=== PATIENT | female | born 1990 | race African-American/Black ===

== ENCOUNTER → 2016-07-01 | Outpatient (CLI) | payer OTHER ==
[2014-08-28 00:34] VITALS: BP 167/78
[~2016-07-01] MED LIST: AMLO10TA2 PO; CICL6.1H IH; ESOM40CA PO; ESOM40CA25 PO; IPRA3AMP23 IH; IPRA4AER IH; LOSA50TA6 PO; METH8TAB PO; MOME13HF IH; MOME13HF2 IH; MONT10TA6 PO; PRED-220 PO; PRED5TAB19 PO; SERT50TA PO; SUCR1ORA PO; TIOT18CA IH; TRIA10.8 NS
--- NOTE | 2016-07-01 13:55 | RAD ---
Indication asthma cough possible tuberculosis. PA and lateral views of the chest were obtained. Comparison is made to an examination 04/21/2014. The heart and pulmonary vessels are normal. The lungs are clear. There is no evidence of active infection. Evidence for significant old granulomatous disease is not seen. Visualized bony structures appear unremarkable. IMPRESSION: Normal study
== END | disposition home or self-care (01) ==
LOC: RAD 12:46
PROVIDERS: ATTEND Allergy & Immunology
DX: J45.998 Other asthma (principal)
CPT/HCPCS: 71020

== ENCOUNTER → 2017-03-20 | Outpatient (CLI) | payer OTHER ==
[2014-08-28 00:34] VITALS: BP 167/78
[~2017-03-20] MED LIST changes: -CICL6.1H IH; +CICL6.1H3 IH; -SUCR1ORA PO; +SUCR1ORA11 PO
--- NOTE | 2017-03-20 16:20 | RAD ---
Left shoulder, 3 views, 03/20/2017: History: Hyperextension injury No fracture or dislocation is identified. No significant arthritic change is seen. IMPRESSION: No acute left shoulder abnormality is detected.
== END ==
LOC: RAD 15:43
PROVIDERS: ATTEND Physician Assistant Medical
DX: M19.019 Primary osteoarthritis, unspecified shoulder (principal)
CPT/HCPCS: 73030

== ENCOUNTER 2017-08-25 09:51 | Emergency (ER) | payer OTHER ==
[2017-08-25 10:17] LABS: URINE HCG POC HCG NEGATIVE (Negative)
[2017-08-25] MEDS: IV NORMAL SALINE 1000ML BAG 1,000 ML IV (10:31)
[2017-08-25] MEDS: ONDANSETRON PF 4 MG/2 ML VIAL. IV ×2 (10:31→10:32)
[2017-08-25] MEDS: APIXABAN 5 MG TABLET. PO (10:32)
[2017-08-25 10:38] LABS: ADD MAN DIFF? NO; BASO % 1 % (0-3); EOS # 0.3 x10^3/uL (0.0-0.7); EOS % 5 % (0-3); HEMATOCRIT 35.9 % (36.0-47.0); HEMOGLOBIN 11.3 g/dL (12.0-15.5); LYMPH # 1.4 x10^3/uL (1.0-4.8); LYMPH % 21 % (24-48); MEAN CORPUSCULAR HEMOGLOBIN 25 pg (25-35); MEAN CORPUSCULAR HGB CONC 32 g/dL (31-37); MEAN CORPUSCULAR VOLUME 78 fL (79-100); MONO # 0.4 x10^3/uL (0.0-1.1); MONO % 6 % (0-9); NEUT # 4.5 x10^3uL (1.8-7.7); NEUT % 67 % (31-73); PLATELET COUNT 388 x10^3/uL (140-400); RED BLOOD COUNT 4.59 x10^6/uL (3.50-5.40); RED CELL DISTRIBUTION WIDTH 17.6 % (11.5-14.5); WHITE BLOOD COUNT 6.7 x10^3/uL (4.0-11.0)
[2017-08-25 11:05] LABS: ANION GAP 18 (6-14); BLOOD UREA NITROGEN 2 mg/dL (7-20); CALCIUM 8.9 mg/dL (8.5-10.1); CARBON DIOXIDE 20 mmol/L (21-32); CHLORIDE 105 mmol/L (98-107); CREATININE 0.7 mg/dL (0.6-1.0); GFR 120.6; GLUCOSE 80 mg/dL (70-99); POTASSIUM 3.1 mmol/L (3.5-5.1); SODIUM 143 mmol/L (136-145)
[2017-08-25 11:17] LABS: BILIRUBIN,URINE SMALL (NEG); CLARITY,URINE CLEAR; COLOR,URINE YELLOW; GLUCOSE,URINE NEGATIVE (NEG); NITRITE,URINE NEGATIVE (NEG); PROTEIN,URINE 100 mg/dL (NEG-TRACE); UROBILINOGEN,URINE 0.2 mg/dL (0.2 mg/dL)
[2017-08-25 11:34] LABS: BACTERIA,URINE FEW /HPF (0-FEW); RBC,URINE 0 /HPF (0-2); SQUAMOUS EPITHELIAL CELL,UR FEW /LPF; YEAST,URINE PRESENT /HPF
[2017-08-25] MEDS: KETOROLAC 30 MG/ML INJ. IV (11:42)
[2017-08-25] MEDS: POTASSIUM CHLORIDE 20 MEQ TABLET.ER. PO (11:43)
[2017-08-25] MEDS ORDERED: FLUCONAZOLE 100 MG TABLET. PO (12:00)
== END 2017-08-25 12:30 | disposition home or self-care (01) ==
LOC: ER 09:51
DX: R11.2 Nausea with vomiting, unspecified (principal); I10 Essential (primary) hypertension; K21.9 Gastro-esophageal reflux disease without esophagitis; J45.909 Unspecified asthma, uncomplicated; Z98.84 Bariatric surgery status; Z79.01 Long term (current) use of anticoagulants; Z88.8 Allergy status to other drugs, medicaments and biological substances
CPT/HCPCS: 36415; 80048; 81001; 81025; 85025; 93005; 96361; 96374; 96375; 96376; 99285-25; J1885; J2405; J7030

== ENCOUNTER → 2018-01-19 | Outpatient (CLI) | payer OTHER ==
[~2018-01-19] VITALS: Ht 165.1 cm; Wt 109.8 kg
[~2018-01-19] MED LIST changes: +APIX5TAB PO; +HYDR-971 PO; +LIDOCAINE 1%/EPI 1:100,000 20 ML VIAL. IJ ONE; +LIDOCAINE 1%/EPI 1:100,000 20 ML VIAL. ONE; +PANT20TA2 PO; +PROPOFOL 100 ML IV ONE
[2018-01-19 11:22] VITALS: BP 128/58
[2018-01-19 13:22] VITALS: BP 137/76
--- NOTE | 2018-01-19 16:43 | RAD ---
Procedure: Ultrasound and fluoroscopically guided placement of right internal jugular power port.. 01/19/2018 4:39 PM Clinical Indication: HUNG CATH PLACEMENT ELECTROLYTE IMBALANCE Sedation: Provided by the anesthesia department. Fluoroscopy time: 2 minutes Dose area product: 5 Gycm2 Consent: The procedure was explained in its entirety to the patient or the patients designated b2b outside sales representative by a member of the treatment team, including a discussion of the risks, benefits and commonly accepted alternatives to the procedure, as well as the expected consequences of no therapy whatsoever. Discussion of the risks included, but was not limited to, those that are most frequent and those that are rare but possibly severe or life-threatening, as well as the possibility of unforeseen complications. Technique and Findings: All elements of maximal sterile barrier technique including the use of a cap, mask, sterile gown, sterile gloves, large sterile sheet, appropriate hand hygiene, and 2% chlorhexidine for cutaneous antisepsis (or acceptable alternative antiseptic per current guidelines) were followed for this procedure.Following informed consent, and a timeout procedure, the patient was prepped and draped in the usual sterile fashion. Ultrasound interrogation of the right neck revealed patency and compressibility of the right internal jugular vein. A 21-gauge micropuncture was then used to gain access to this vein under ultrasound guidance. A hard copy ultrasound image was recorded. The needle was exchanged over a wire for a sheath. A 1 inch incision was made several centimeters inferior to the venotomy site. A catheter was tunneled from this site dermatotomy site in the neck. Catheter was advanced through peel-away sheath such that its tip was in the proximal right atrium with the patient supine. The catheter was trimmed to length and connected to the port reservoir. The port was found to flush and aspirate normally. The wound was closed in layers using 4-0 Vicryl suture. Sterile dressings were applied. Impression: Successful ultrasound and fluoroscopically guided placement of a right internal jugular PowerPort
== END | disposition home or self-care (01) ==
LOC: INTRAD 09:58
PROVIDERS: ATTEND Surgery
DX: Z45.2 Encounter for adjustment and management of vascular access device (principal); E87.8 Other disorders of electrolyte and fluid balance, not elsewhere classified; Z88.5 Allergy status to narcotic agent; Z88.8 Allergy status to other drugs, medicaments and biological substances
CPT/HCPCS: 36561; 76937; 77001; A4215; C1788; C1892; J0690; J2704; J3490; C1751

== ENCOUNTER → 2018-02-02 | Day surgery (SDC) | payer OTHER ==
[~2018-02-02] VITALS: Ht 165.1 cm; Wt 104.3 kg
[~2018-02-02] MED LIST changes: -AMLO10TA2 PO; +AMLO10TA6 PO; +HEPARIN PF 500 UNIT/5 ML DISP.SYRIN. IV ONE; +HYDROcodone/APAP 5/325MG 1 TAB TABLET PO ONE; +IV RINGERS,LACTATED 1000ML 1,000 ML IV SCH; +LIDOCAINE 1% PF 2 ML VIAL. ID PRN; -LIDOCAINE 1%/EPI 1:100,000 20 ML VIAL. ONE; +LIDOCAINE 2% 100 MG/5 ML SYRINGE. ONE; -LOSA50TA6 PO; +LOSA50TA7 PO; +ONDANSETRON PF 4 MG/2 ML VIAL. IV PRN; +PROCHLORPERAZINE 10 MG/2 ML VIAL. IV PRN; +PROPOFOL 10 MG/ML (20ML) VIAL. IV ONE; -PROPOFOL 100 ML IV ONE; +SUCCINYLCHOLINE 200 MG/10 ML VIAL. ONE; +ceFAZolin 2GM PREMIX 2 GM/50 ML BAG IV ONE; +diphenhydrAMINE 50 MG/ML VIAL IVP ONE; +diphenhydrAMINE 50 MG/ML VIAL ONE; +fentaNYL PF VIAL 100 MCG/2 ML VIAL IV PRN
[2018-02-02 10:46] VITALS: BP 144/92
[2018-02-02] MEDS: fentaNYL PF VIAL 100 MCG/2 ML VIAL IV PRN ×2 (14:02→14:30)
[2018-02-02 15:10] VITALS: BP 120/71
== END | disposition home or self-care (01) ==
LOC: SURG 10:14
PROVIDERS: ATTEND Anesthesiology
DX: Z45.2 Encounter for adjustment and management of vascular access device (principal); Z88.5 Allergy status to narcotic agent; Z88.8 Allergy status to other drugs, medicaments and biological substances
CPT/HCPCS: 36558; 36590; 76937; 77001; A7015; C1751; J0330; J0690; J1200; J2704; J3010; J7120

== ENCOUNTER → 2018-02-07 | Outpatient (CLI) | payer OTHER ==
[2018-02-05 10:30] VITALS: BP 133/80
[~2018-02-07] MED LIST changes: -HEPARIN PF 500 UNIT/5 ML DISP.SYRIN. IV ONE; -HYDROcodone/APAP 5/325MG 1 TAB TABLET PO ONE; -IV RINGERS,LACTATED 1000ML 1,000 ML IV SCH; -LIDOCAINE 1% PF 2 ML VIAL. ID PRN; -LIDOCAINE 1%/EPI 1:100,000 20 ML VIAL. IJ ONE; -LIDOCAINE 2% 100 MG/5 ML SYRINGE. ONE; -ONDANSETRON PF 4 MG/2 ML VIAL. IV PRN; -PROCHLORPERAZINE 10 MG/2 ML VIAL. IV PRN; -PROPOFOL 10 MG/ML (20ML) VIAL. IV ONE; -SUCCINYLCHOLINE 200 MG/10 ML VIAL. ONE; -ceFAZolin 2GM PREMIX 2 GM/50 ML BAG IV ONE; -diphenhydrAMINE 50 MG/ML VIAL IVP ONE; -diphenhydrAMINE 50 MG/ML VIAL ONE; -fentaNYL PF VIAL 100 MCG/2 ML VIAL IV PRN
[2018-02-09 13:39] LABS: ANTITHROMBIN III SEE SEPARATE REPORT; CARDIOLIPIN ANTIBODIES SEE SEPARATE REPORT; LUPUS ANTICOAGULANT SEE SEPARATE REPORT
[2018-02-09 13:40] LABS: PROTEIN C ACTIVITY SEE SEPARATE REPORT; PROTEIN S ACTIVITY SEE SEPARATE REPORT
[2018-02-09 13:43] LABS: PROTEIN S FREE SEE SEPARATE REPORT; PROTEIN S TOTAL SEE SEPARATE REPORT
== END | disposition home or self-care (01) ==
LOC: LAB 10:48
PROVIDERS: ATTEND Hospitalist
DX: D68.59 Other primary thrombophilia (principal); I10 Essential (primary) hypertension; K21.9 Gastro-esophageal reflux disease without esophagitis; Z86.711 Personal history of pulmonary embolism; Z82.49 Family history of ischemic heart disease and other diseases of the circulatory system; Z88.8 Allergy status to other drugs, medicaments and biological substances; Z88.5 Allergy status to narcotic agent
CPT/HCPCS: 83090; 85300; 85302; 85305; 85306; 85610; 86147

== ENCOUNTER → 2018-02-14 | Outpatient (CLI) | payer OTHER ==
[2018-02-12 09:05] VITALS: BP 129/75
[~2018-02-14] MED LIST changes: +HEPARIN PF 500 UNIT/5 ML DISP.SYRIN. IV ONE; +HYDR-2867 PO; +OXYC15TA PO
[2018-02-14 10:20] LABS: CREATININE 0.5 mg/dL (0.6-1.0); GFR 177.8; POTASSIUM 3.5 mmol/L (3.5-5.1)
[2018-02-14 10:24] LABS: ALBUMIN 2.7 g/dL (3.4-5.0); ALBUMIN/GLOBULIN RATIO 0.7 (1.0-1.7); TOTAL BILIRUBIN 0.4 mg/dL (0.2-1.0); TOTAL PROTEIN 6.4 g/dL (6.4-8.2)
[2018-02-14 10:26] LABS: PHOSPHORUS 3.8 mg/dL (2.6-4.7); URIC ACID 3.6 mg/dL (2.6-6.0)
[2018-02-14 10:27] LABS: CHOLESTEROL/HDL RATIO 2.3
[2018-02-14 10:31] LABS: BASO % 1 % (0-3); EOS # 0.1 x10^3/uL (0.0-0.7); EOS % 2 % (0-3); HEMATOCRIT 32.4 % (36.0-47.0); HEMOGLOBIN 10.8 g/dL (12.0-15.5); LYMPH # 2.4 x10^3/uL (1.0-4.8); LYMPH % 53 % (24-48); MEAN CORPUSCULAR HEMOGLOBIN 26 pg (25-35); MEAN CORPUSCULAR HGB CONC 33 g/dL (31-37); MEAN CORPUSCULAR VOLUME 77 fL (79-100); MONO # 0.2 x10^3/uL (0.0-1.1); MONO % 5 % (0-9); NEUT # 1.8 x10^3uL (1.8-7.7); NEUT % 39 % (31-73); PLATELET COUNT 242 x10^3/uL (140-400); RED BLOOD COUNT 4.19 x10^6/uL (3.50-5.40); RED CELL DISTRIBUTION WIDTH 21.1 % (11.5-14.5); WHITE BLOOD COUNT 4.5 x10^3/uL (4.0-11.0)
[2018-02-14 12:38] LABS: % BASOS 5 % (0-3); % EOS 4 % (0-5); % LYMPHS 26 % (24-48); % MONOS 9 % (0-10); % SEGS 56 % (35-66)
[2018-02-14 12:39] LABS: ANISOCYTOSIS MOD; HYPOCHROMIA SLIGHT; PLT ESTIMATE ADEQUATE (ADEQUATE); TARGET CELLS FEW
[2018-02-15 04:20] LABS: HEMOGLOBIN A1C 4.5 % (4.8-5.6)
== END | disposition home or self-care (01) ==
LOC: OPS 09:16
PROVIDERS: ATTEND Surgery
DX: E55.9 Vitamin D deficiency, unspecified (principal); R11.2 Nausea with vomiting, unspecified; F50.9 Eating disorder, unspecified; I10 Essential (primary) hypertension; K21.9 Gastro-esophageal reflux disease without esophagitis; J45.909 Unspecified asthma, uncomplicated; Z86.711 Personal history of pulmonary embolism; Z79.01 Long term (current) use of anticoagulants
CPT/HCPCS: 36415; 80053; 80061; 82306; 82607; 82746; 83036; 83540; 83550; 83735; 84100; 84134; 84550; 85007; 85025

== ENCOUNTER → 2018-03-28 | Day surgery (SDC) | payer OTHER ==
[~2018-03-28] VITALS: Ht 165.1 cm; Wt 95.3 kg
[~2018-03-28] MED LIST changes: +BUPIVAC MPF-EPI 0.5%-1:200000 30 ML VIAL. ONE; +IV RINGERS,LACTATED 1000ML 1,000 ML IV SCH; +LIDOCAINE 1% PF 2 ML VIAL. ID PRN; +MIDAZOLAM HCL/PF 2 MG/2 ML VIAL. IV PRN; +PROPOFOL 20 ML IV ONE; +SCOPOLAMINE 1.5MG PATCH. TD ONE; +fentaNYL PF VIAL 100 MCG/2 ML VIAL IV PRN; +fentaNYL PF VIAL 100 MCG/2 ML VIAL ONE; +oxyCODONE IR 5 MG TABLET PO ONE
[2018-03-28 11:38] LABS: U PREG PATIENT NEGATIVE (NEG)
--- NOTE | 2018-03-28 12:56 | PDOC ---
BRIEF OPERATIVE NOTE Date: Mar 28, 2018 Pre-Op Diagnosis right upper chest fluid collection at old port site Post-Op Diagnosis same Procedure Performed excision skin and subcutaneous tissue Surgeon J Carlos Anesthesia Type: MAC Blood Loss 2cc IV Fluid 500cc Specimens Obtained subcutaneous tissue Findings fibrotic tissue, no purulence Complications none Operative Note WK # [id number] SIERRA MEIER MD Mar 28, 2018 12:56
--- NOTE | 2018-03-28 12:59 | DISCH ---
DISCHARGE INSTRUCTIONS Condition on Discharge Condition on Discharge: Stable Activity After Discharge Activity Instructions for Disc: Resume previous activity Driving Instructions after Dis: Do not drive today Diet after Discharge Diet after Discharge: Regular Wound Incision Care Wound/Incision Care: Ice to area for comfort Other wound/incision instructi: office Monday for dressing change Contacting the [facility] after DC Call your doctor for: If your condition worsens Follow-Up Follow up with: J Carlos Monday SIERRA MEIER MD Mar 28, 2018 12:59
[2018-03-28] MEDS: fentaNYL PF VIAL 100 MCG/2 ML VIAL IV PRN ×2 (13:22→13:31)
[2018-03-28 13:31] VITALS: BP 117/64
--- NOTE | 2018-03-28 13:47 | OP ---
DATE OF SURGERY: 03/28/2018 PREOPERATIVE DIAGNOSIS: Right upper chest fluid collection at old port site by ultrasound. POSTOPERATIVE DIAGNOSIS: Right upper chest fluid collection at old port site by ultrasound. PROCEDURE: Excision of skin and subcutaneous tissue. SURGEON: Sierra Meier MD ANESTHESIA: Local with sedation. ESTIMATED BLOOD LOSS: 2 mL. IV FLUIDS: 500 mL. INDICATIONS: The patient is a 27-year-old with a previous port site in the right upper chest that has been a source of pain. Ultrasound suggests possible fluid collection or foreign body. She is brought for excision. DESCRIPTION OF PROCEDURE: The patient brought to the operating suite and with IV sedation on board, the right upper chest was prepped and draped in usual sterile fashion. The area of concern, which had been identified preoperatively with the patient's assistance was infiltrated with local anesthetic and the old scar excised. The underlying tissue was removed en bloc with cautery dissection. The cavity was cultured. When hemostasis was present, the wound was closed loosely with simple stitches of 4-0 nylon. Quarter inch plain Nu Gauze was used to pack the wound. Sterile dressing applied. The patient was taken to the postoperative area in stable condition having tolerated the procedure well. SIERRA MEIER MD DR: ROMERO/holly JOB#: [id number] / [id number]
--- NOTE | 2018-03-30 13:19 | PATHOLOGY ---
[facility] Accession Number: [id number] . 01 Material submitted: . SUBCUTANEOUS TISSUE,RIGHT UPPER CHEST . 01 Clinical history: . Subcutaneous mass right upper chest . 02 Diagnosis: "Subcutaneous tissue, right upper chest", excisional biopsy: - Mature adipose tissue with fat necrosis. (See comment). 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 02 Comment: The findings may represent a lipoma with focal fat necrosis. Clinical correlation is recommended. 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 02 Electronically signed: . Mariann Pan MD, Pathologist NPI- [id number] . 01 Gross description: . The specimen is received in formalin, labeled "Nadolena Obregon, subcutaneous tissue right upper chest". Received are two segments of bright yellow lobulated tissue measuring 3.7 x 2.2 x 1.3 cm in greatest dimensions. Sectioning reveals bright yellow, lobulated cut surfaces throughout with no grossly distinct nodules or lesions. The specimen is submitted representatively in cassette A1. (CAA; 03/29/2018) QAC/QAC . 02 Pathologist provided ICD-10: I96 . 02 CPT . 711374 Specimen Comment: A courtesy copy of this report has been sent to Specimen Comment: [phone], . Specimen Comment: Report sent to / DR SCHREIBER Specimen Comment: A duplicate report has been generated due to demographic updates. Performed at: 01 [facility] [address], [place], [place] [id number] MD Nate Luo MD Phone: [phone] Performed at: 02 [facility] [address] [place], [place] [id number] MD Syed Garrison MD Phone: [phone]
== END | disposition home or self-care (01) ==
LOC: SURG 10:50
PROVIDERS: ATTEND Surgery
DX: L90.5 Scar conditions and fibrosis of skin (principal); I10 Essential (primary) hypertension; K21.9 Gastro-esophageal reflux disease without esophagitis; Z79.01 Long term (current) use of anticoagulants; J45.909 Unspecified asthma, uncomplicated; Z88.5 Allergy status to narcotic agent; Z79.899 Other long term (current) drug therapy; Z98.890 Other specified postprocedural states; Z88.8 Allergy status to other drugs, medicaments and biological substances
CPT/HCPCS: 11400; 81025; 87071; 87075; J0690; J2704; J3010; J3490; 88304

== ENCOUNTER 2018-04-30 12:43 | Emergency (ER) | payer OTHER ==
[~2018-04-30] VITALS: Ht 165.1 cm; Wt 98.9 kg
[~2018-04-30 12:43] MED LIST changes: -BUPIVAC MPF-EPI 0.5%-1:200000 30 ML VIAL. ONE; -HEPARIN PF 500 UNIT/5 ML DISP.SYRIN. IV ONE; +HYDR-3164 PO; -HYDR-971 PO; -IV RINGERS,LACTATED 1000ML 1,000 ML IV SCH; -LIDOCAINE 1% PF 2 ML VIAL. ID PRN; +LOSA-73 PO; -LOSA50TA7 PO; -MIDAZOLAM HCL/PF 2 MG/2 ML VIAL. IV PRN; -PROPOFOL 20 ML IV ONE; -SCOPOLAMINE 1.5MG PATCH. TD ONE; -fentaNYL PF VIAL 100 MCG/2 ML VIAL IV PRN; -fentaNYL PF VIAL 100 MCG/2 ML VIAL ONE; -oxyCODONE IR 5 MG TABLET PO ONE
--- NOTE | 2018-04-30 13:10 | PHYS DOC ---
Past Medical History Past Medical History: Asthma, GERD, Hypertension, Pneumonia Additional Past Medical Histor: seasonal allergies, palpitations, pulmonary embolism Past Surgical History: Other Additional Past Surgical Histo: RT hip, RT knee, gastric bypass Additional Information: Uses vape Alcohol Use: Occasionally Drug Use: None Social History Narrative: prior history of THC through the vape Adult General Chief Complaint Chief Complaint: CHEST PAIN HPI HPI Patient is a 27 year old female who presents with chest and back pain. 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 Patient is currently on Eliquis. Patient is also had pneumonia this likely due to aspiration since that time. 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 Patient additionally receives IV infusion therapy 3 times a week with fluids, and a multivitamin preparation, as a complication from her gastric bypass surgery. Patient reports being lightheaded but this is normal for her since the gastric bypass. Denies any syncopal episode. Patient denies any fever. Nothing seems to make the discomfort better or worse. It has been waxing and waning over the past month. Currently reported as moderate and achy in nature.[] Review of Systems Review of Systems Constitutional: Denies fever or chills [] Eyes: Denies change in visual acuity, redness, or eye pain [] HENT: Denies nasal congestion or sore throat [] Respiratory: Denies cough or shortness of breath [] Cardiovascular: No additional information not addressed in HPI [] GI: Denies abdominal pain, nausea, vomiting, bloody stools or diarrhea [] : Denies dysuria or hematuria [] Musculoskeletal: Denies back pain or joint pain [] Integument: Denies rash or skin lesions [] Neurologic: Denies headache, focal weakness or sensory changes [] Endocrine: Denies polyuria or polydipsia [] All other systems were reviewed and found to be within normal limits, except as documented in this note. Current Medications Current Medications Current Medications Medications (Trade) Dose Ordered Sig/Serjio Start Time Stop Time Status Last Admin Dose Admin Hydromorphone HCl (Dilaudid) 0.5 mg 1X ONCE 04/30/18 13:15 04/30/18 13:16 DC 04/30/18 14:10 0.5 MG Info (CONTRAST GIVEN -- Rx MONITORING) 1 each PRN DAILY PRN 04/30/18 13:45 05/02/18 13:44 Iohexol (Omnipaque 300 Mg/ml) 100 ml 1X ONCE 04/30/18 13:30 04/30/18 13:31 DC 04/30/18 13:52 100 ML Prochlorperazine Edisylate (Compazine) 10 mg 1X ONCE 04/30/18 13:30 04/30/18 13:31 DC 04/30/18 14:10 10 MG Allergies Allergies Allergies Coded Allergies Type Severity Reaction Last Updated Verified omalizumab Allergy Severe ANAPHYLAXIS 04/30/18 Yes codeine Allergy Intermediate Itching 04/30/18 Yes Physical Exam Physical Exam Constitutional: Well developed, well nourished, no acute distress, non-toxic appearance. [] HENT: Normocephalic, atraumatic, bilateral external ears normal, oropharynx moist, no oral exudates, nose normal. [] Eyes: PERRLA, EOMI, conjunctiva normal, no discharge. [] Neck: Normal range of motion, no tenderness, supple, no stridor. [] Cardiovascular:Heart rate regular rhythm, no murmur [] Lungs & Thorax: Bilateral breath sounds clear to auscultation [] Abdomen: Bowel sounds normal, soft, no tenderness, no masses, no pulsatile masses. [] Skin: Warm, dry, no erythema, no rash. [] Back: No tenderness, no CVA tenderness. [] Extremities: No tenderness, no cyanosis, no clubbing, ROM intact, no edema. [] Neurologic: Alert and oriented X 3, normal motor function, normal sensory function, no focal deficits noted. [] Psychologic: Affect normal, judgement normal, mood normal. [] Current Patient Data Vital Signs Vital Signs Date Time Temp Pulse Resp B/P (MAP) Pulse Ox O2 Delivery O2 Flow Rate FiO2 04/30/18 14:10 17 100 04/30/18 13:01 82 118/88 (98) Room Air Lab Values Laboratory Tests Test 04/30/18 13:25 04/30/18 13:28 04/30/18 14:02 Urine Collection Type Unknown Urine Color Yellow Urine Clarity Clear Urine pH 6.0 Urine Specific [place] 1.020 Urine Protein Negative mg/dL (NEG-TRACE) Urine Glucose (UA) Negative mg/dL (NEG) Urine Ketones (Stick) 40 mg/dL (NEG) Urine Blood Negative (NEG) Urine Nitrite Negative (NEG) Urine Bilirubin Moderate (NEG) Urine Urobilinogen Dipstick 1.0 mg/dL (0.2 mg/dL) Urine Leukocyte Esterase Small (NEG) Urine RBC 0 /HPF (0-2) Urine WBC 1-4 /HPF (0-4) Urine Squamous Epithelial Cells Mod /LPF Urine Bacteria Moderate /HPF (0-FEW) Urine Mucus Marked /LPF Urine Yeast Present /HPF Urine Opiates Screen Pos (NEG) Urine Methadone Screen Neg (NEG) Urine Barbiturates Neg (NEG) Urine Phencyclidine Screen Neg (NEG) Urine Amphetamine/Methamphetamine Neg (NEG) Urine Benzodiazepines Screen Neg (NEG) Urine Cocaine Screen Neg (NEG) Urine Cannabinoids Screen Pos (NEG) Urine Ethyl Alcohol Neg (NEG) POC Urine HCG, Qualitative Hcg negative (Negative) White Blood Count 4.0 x10^3/uL (4.0-11.0) Red Blood Count 3.27 x10^6/uL (3.50-5.40) L Hemoglobin 9.1 g/dL (12.0-15.5) L Hematocrit 27.0 % (36.0-47.0) L Mean Corpuscular Volume 83 fL (79-100) Mean Corpuscular Hemoglobin 28 pg (25-35) Mean Corpuscular Hemoglobin Concent 34 g/dL (31-37) Red Cell Distribution Width 16.9 % (11.5-14.5) H Platelet Count 159 x10^3/uL (140-400) Neutrophils (%) (Auto) 40 % (31-73) Lymphocytes (%) (Auto) 50 % (24-48) H Monocytes (%) (Auto) 7 % (0-9) Eosinophils (%) (Auto) 1 % (0-3) Basophils (%) (Auto) 1 % (0-3) Neutrophils # (Auto) 1.6 x10^3uL (1.8-7.7) L Lymphocytes # (Auto) 2.0 x10^3/uL (1.0-4.8) Monocytes # (Auto) 0.3 x10^3/uL (0.0-1.1) Eosinophils # (Auto) 0.1 x10^3/uL (0.0-0.7) Basophils # (Auto) 0.0 x10^3/uL (0.0-0.2) Prothrombin Time 27.8 SEC (11.7-14.0) H Prothrombin Time INR 2.6 (0.8-1.1) H Sodium Level 142 mmol/L (136-145) Potassium Level 3.2 mmol/L (3.5-5.1) L Chloride Level 111 mmol/L (98-107) H Carbon Dioxide Level 20 mmol/L (21-32) L Anion Gap 11 (6-14) Blood Urea Nitrogen 6 mg/dL (7-20) L Creatinine 0.5 mg/dL (0.6-1.0) L Estimated GFR (Cockcroft-Gault) 177.8 BUN/Creatinine Ratio 12 (6-20) Glucose Level 69 mg/dL (70-99) L Calcium Level 7.2 mg/dL (8.5-10.1) L Magnesium Level 2.0 mg/dL (1.8-2.4) Total Bilirubin 0.3 mg/dL (0.2-1.0) Aspartate Amino Transferase (AST) 15 U/L (15-37) Alanine Aminotransferase (ALT) 15 U/L (14-59) Alkaline Phosphatase 75 U/L (46-116) Troponin I Quantitative < 0.017 ng/mL (0.000-0.055) SU-Khy-Y-Type Natriuretic Peptide 112 pg/mL (0-124) Total Protein 4.7 g/dL (6.4-8.2) L Albumin 1.9 g/dL (3.4-5.0) L Albumin/Globulin Ratio 0.7 (1.0-1.7) L Lipase 32 U/L (73-393) L Laboratory Tests 04/30/18 14:02 Laboratory Tests 04/30/18 14:02 EKG EKG EKG shows a sinus rhythm, no ST elevations, T-wave inversions in the 3,4,5, and 6. Normal axis, QTc is normal at 448 ms.[] Radiology/Procedures Radiology/Procedures CT angiogram of the chest: FINDINGS: The visualized thyroid gland grossly appears unremarkable. . The heart size grossly appears unremarkable. The caliber of the aorta grossly appears unremarkable. There is no evidence of filling defect identified in the main pulmonary arterial trunk and right and left main pulmonary arteries and the visualized lobar, segmental branches of the pulmonary arteries. Minimal atelectasis left lung base There is diffuse decreased attenuation noted in the liver likely hepatic steatosis There is 2.4 cm hypodensity identified in the left lobe of the liver probably focal fat. The visualized spleen, adrenals grossly appears unremarkable. No evidence of lytic bony destructive lesion. Left-sided catheter tip identified in the SVC. IMPRESSION: 1. No evidence of pulmonary embolism. 2. Minimal atelectasis left lung base. 3. Hepatic steatosis with focal fat in the left lobe of the liver. [] Course & Med Decision Making Course & Med Decision Making Pertinent Labs and Imaging studies reviewed. (See chart for details) ED course: Patient arrived, is placed in bed, in tolerate exam well. She was transferred to and from [place] without complications. After the return of the lab and imaging findings, these were discussed with the patient, and all questions were answered. Patient was discharged in improved condition. Medical decision making: There is no evidence of acute coronary syndrome, pulmonary embolism, pneumonia, pneumothorax, hemothorax, nor significant intrathoracic pathology.[] Dragon Disclaimer Dragon Disclaimer This electronic medical record was generated, in whole or in part, using a voice recognition dictation system. Departure Departure Impression: Primary Impression: Chest pain Disposition: 01 HOME, SELF-CARE Condition: GOOD Referrals: MYRA SCHREIBER MD (PCP) Follow-up with your regular doctor in 2 days. Patient Instructions: Chest Pain (Nonspecific) Additional Instructions: Follow-up with your regular doctor in 2 days. Return to the ER if worsening pain , difficulty breathing, fever, or any other concerns. Problem Qualifiers Primary Impression: Chest pain Chest pain type: unspecified Qualified Codes: R07.9 - Chest pain, unspecified BENITO URIAS DO Apr 30, 2018 13:10
[2018-04-30] MEDS ORDERED: CONTRAST GIVEN. MC PRN (13:45)
--- NOTE | 2018-04-30 13:49 | EKG ---
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
[2018-04-30 13:50] LABS: BILIRUBIN,URINE MODERATE (NEG); CLARITY,URINE CLEAR; COLOR,URINE YELLOW; NITRITE,URINE NEGATIVE (NEG); PROTEIN,URINE NEGATIVE (NEG-TRACE)
[2018-04-30 13:52] LABS: BACTERIA,URINE MODERATE /HPF (0-FEW); RBC,URINE 0 /HPF (0-2); SQUAMOUS EPITHELIAL CELL,UR MOD /LPF; YEAST,URINE PRESENT /HPF
[2018-04-30] MEDS: IOHEXOL 300 MG/ML 100ML VIAL. IV ONE (13:52)
[2018-04-30 13:56] LABS: BARBITURATES NEG (NEG); BENZODIAZEPINES NEG (NEG); CANNABINOIDS POS (NEG); COCAINE NEG (NEG); METHADONE NEG (NEG); OPIATES POS (NEG); PHENCYCLIDINE NEG (NEG)
[2018-04-30 13:58] LABS: AMPHETAMINE/METHAMPHETAMINE NEG (NEG)
[2018-04-30] MEDS: PROCHLORPERAZINE 10 MG/2 ML VIAL. IV ONE (14:10)
[2018-04-30] MEDS: HYDROmorphone 2 MG/ML VIAL IV ONE (14:10)
--- NOTE | 2018-04-30 14:17 | RAD ---
Examination: CT angiography chest HISTORY: History of chest pain COMPARISON: None available Technique: Axial CT angiographic images of the chest were performed with IV contrast. Coronal and sagittal 3-D MIP reformats are performed Exposure: One or more of the following individualized dose reduction techniques were utilized for this examination: 1. Automated exposure control 2. Adjustment of the mA and/or kV according to patient size 3. Use of iterative reconstruction technique FINDINGS: The visualized thyroid gland grossly appears unremarkable. . The heart size grossly appears unremarkable. The caliber of the aorta grossly appears unremarkable. There is no evidence of filling defect identified in the main pulmonary arterial trunk and right and left main pulmonary arteries and the visualized lobar, segmental branches of the pulmonary arteries. Minimal atelectasis left lung base There is diffuse decreased attenuation noted in the liver likely hepatic steatosis There is 2.4 cm hypodensity identified in the left lobe of the liver probably focal fat. The visualized spleen, adrenals grossly appears unremarkable. No evidence of lytic bony destructive lesion. Left-sided catheter tip identified in the SVC. IMPRESSION: 1. No evidence of pulmonary embolism. 2. Minimal atelectasis left lung base. 3. Hepatic steatosis with focal fat in the left lobe of the liver. Electronically signed by: Fareed Ac MD (04/30/2018 2:14 PM) [place] [id number]
[2018-04-30 14:22] LABS: BASO % 1 % (0-3); EOS # 0.1 x10^3/uL (0.0-0.7); EOS % 1 % (0-3); HEMOGLOBIN 9.1 g/dL (12.0-15.5); LYMPH % 50 % (24-48); MEAN CORPUSCULAR HEMOGLOBIN 28 pg (25-35); MEAN CORPUSCULAR HGB CONC 34 g/dL (31-37); MEAN CORPUSCULAR VOLUME 83 fL (79-100); MONO # 0.3 x10^3/uL (0.0-1.1); MONO % 7 % (0-9); NEUT # 1.6 x10^3uL (1.8-7.7); NEUT % 40 % (31-73); PLATELET COUNT 159 x10^3/uL (140-400); RED BLOOD COUNT 3.27 x10^6/uL (3.50-5.40); RED CELL DISTRIBUTION WIDTH 16.9 % (11.5-14.5)
[2018-04-30 14:35] LABS: PROTHROMBIN TIME PATIENT 27.8 SEC (11.7-14.0)
[2018-04-30 14:38] LABS: CALCIUM 7.2 mg/dL (8.5-10.1); CREATININE 0.5 mg/dL (0.6-1.0); GFR 177.8; POTASSIUM 3.2 mmol/L (3.5-5.1)
[2018-04-30 14:46] LABS: ALBUMIN 1.9 g/dL (3.4-5.0); ALBUMIN/GLOBULIN RATIO 0.7 (1.0-1.7); TOTAL BILIRUBIN 0.3 mg/dL (0.2-1.0); TOTAL PROTEIN 4.7 g/dL (6.4-8.2)
[2018-04-30 15:00] VITALS: BP 120/70
== END 2018-04-30 15:23 | disposition home or self-care (01) ==
LOC: ER 12:43
DX: R07.9 Chest pain, unspecified (principal); J98.11 Atelectasis; M54.9 Dorsalgia, unspecified; K76.0 Fatty (change of) liver, not elsewhere classified; J45.909 Unspecified asthma, uncomplicated; K21.9 Gastro-esophageal reflux disease without esophagitis; I10 Essential (primary) hypertension; Z86.711 Personal history of pulmonary embolism; Z88.5 Allergy status to narcotic agent; Z88.8 Allergy status to other drugs, medicaments and biological substances
CPT/HCPCS: 36415; 71275; 80053; 80307; 81001; 81025; 83690; 83735; 83880; 84484; 85025; 85610; 87086; 93005; 96374; 96375; 99284; J0780; J1170; Q9967

== ENCOUNTER → 2018-11-21 | Outpatient (CLI) | payer OTHER ==
[~2018-11-21] VITALS: Ht 165.1 cm; Wt 74.8 kg
[~2018-11-21] MED LIST changes: -AMLO10TA6 PO; +AMLO10TA8 PO; +CHOL2000 PO; +DEXAMETHASONE SOD PHOS 4 MG/ML VIAL ONE; +DULO60CA6 PO; +HEPARIN PF 500 UNIT/5 ML DISP.SYRIN. IV ONE; +HYDROmorphone 2 MG/ML VIAL ONE; +IV RINGERS,LACTATED 1000ML 1,000 ML IV SCH; +LIDOCAINE 1% PF 2 ML VIAL. ID PRN; +LIDOCAINE 1% PF 2 ML VIAL. ONE; +LIDOCAINE 2% PF 5 ML VIAL. ONE; +LIDOCAINE WITH 8.4% SOD BICARB 3 ML DISP.SYRIN. IJ ONE; +LIDOCAINE WITH 8.4% SOD BICARB 3 ML DISP.SYRIN. ONE; +MIDAZOLAM HCL/PF 2 MG/2 ML VIAL. ONE; +MONT10TA49 PO; -MONT10TA6 PO; +MORPHINE SULFATE 2 MG/ML VIAL. IV PRN; +ONDANSETRON PF 4 MG/2 ML VIAL. IV PRN; +ONDANSETRON PF 4 MG/2 ML VIAL. ONE; +PROCHLORPERAZINE 10 MG/2 ML VIAL. IV PRN; +PROPOFOL 40 ML IV ONE; +fentaNYL PF VIAL 100 MCG/2 ML VIAL IV PRN; +fentaNYL PF VIAL 100 MCG/2 ML VIAL ONE
[2018-11-21 11:03] LABS: CALCIUM 8.7 mg/dL (8.5-10.1); CREATININE 0.7 mg/dL (0.6-1.0); GFR 119.7; POTASSIUM 3.3 mmol/L (3.5-5.1)
[2018-11-21 11:07] LABS: BASO % 1 % (0-3); EOS % 1 % (0-3); HEMATOCRIT 32.7 % (36.0-47.0); HEMOGLOBIN 10.7 g/dL (12.0-15.5); LYMPH # 1.7 x10^3/uL (1.0-4.8); LYMPH % 47 % (24-48); MEAN CORPUSCULAR HEMOGLOBIN 26 pg (25-35); MEAN CORPUSCULAR HGB CONC 33 g/dL (31-37); MEAN CORPUSCULAR VOLUME 81 fL (79-100); MONO # 0.2 x10^3/uL (0.0-1.1); MONO % 5 % (0-9); NEUT # 1.6 x10^3uL (1.8-7.7); NEUT % 46 % (31-73); PLATELET COUNT 184 x10^3/uL (140-400); RED BLOOD COUNT 4.05 x10^6/uL (3.50-5.40); RED CELL DISTRIBUTION WIDTH 15.3 % (11.5-14.5); WHITE BLOOD COUNT 3.6 x10^3/uL (4.0-11.0)
[2018-11-21 11:12] LABS: PROTHROMBIN TIME PATIENT 13.5 SEC (11.7-14.0)
[2018-11-21 11:32] VITALS: BP 112/72
[2018-11-21 11:44] LABS: C-REACTIVE PROTEIN 0.5 mg/L (0-3.3)
[2018-11-21] MEDS: HYDROmorphone 2 MG/ML VIAL IV PRN ×4 (12:10→13:42)
--- NOTE | 2018-11-21 12:19 | NUR ---
Patient came in outpatient for powerline replacement. Patient states she can only have procedures done with anesthesia only. Anesthesia at bedside for all sedation and monitoring throughout procedure, patient tolerated well with in complications. Received Ancef 1GM IV and sent to PACU for recovery.
[2018-11-21 13:20] VITALS: BP 133/66
--- NOTE | 2018-11-21 16:13 | RAD ---
11/21/2018 Exchange of of left internal jugular power line (tunneled central line with subcutaneous cuff) Indication: Abnormal catheter function. Persistent need for frequent effusions Discussion: Sterility: All elements of maximal sterile barrier technique including the use of a cap, mask, sterile gown, sterile gloves, large sterile sheet, appropriate hand hygiene, and 2% chlorhexidine for cutaneous antisepsis (or acceptable alternative antiseptic per current guidelines) were followed for this procedure. Consent: The procedure was explained in its entirety to the patient or the patients designated claims representative by a member of the treatment team, including a discussion of the risks, benefits and commonly accepted alternatives to the procedure, as well as the expected consequences of no therapy whatsoever. Discussion of the risks included, but was not limited to, those that are most frequent and those that are rare but possibly severe or life-threatening, as well as the possibility of unforeseen complications. Technique and Findings: Following informed consent, a timeout procedure was performed. The patient was prepped and draped in the usual sterile fashion. 1% lidocaine was administered for local anesthesia. The subcutaneous cuff was freed with blunt dissection. A guidewire was advanced through the pre-existing catheter into the IVC. The catheter was removed over the wire. A new tunneled PICC line was advanced over the wire such that its tip was in the proximal right atrium with the patient supine, similar position to prior catheter. The catheter was found to flush and aspirate normally. The catheter was then flushed, packed with Heparin, capped, and sutured to the skin. The neck dermatotomy was closed with Dermabond. No immediate complications were identified Sedation: Provided by the anesthesiology department. Total fluoroscopy time: 8.7 MIN Dose area product: 8 Gycm2 Impression: Replacement of left internal jugular tunneled central venous catheter
[2018-11-21 20:07] LABS: RHEUMATOID FACTOR <10.0 IU/mL (0.0-13.9)
[2018-11-23 22:12] LABS: ANA INTERP Negative (.); CYCLIC CITRULLIN PEP AB 5 units (0-19)
== END ==
LOC: INTRAD 10:00
PROVIDERS: ATTEND Family Medicine
DX: T82.898A Other specified complication of vascular prosthetic devices, implants and grafts, initial encounter (principal); Y83.8 Other surgical procedures as the cause of abnormal reaction of the patient, or of later complication, without mention of misadventure at the time of the procedure; Y92.89 Other specified places as the place of occurrence of the external cause; Z79.01 Long term (current) use of anticoagulants
CPT/HCPCS: 36415; 36581; 77001; 80048; 82550; 82607; 82746; 83735; 84550; 85025; 85610; 85651; 86038; 86140; 86200; 86431; C1751; C1769; J0690; J1100; J1170; J2001; J2250; J2704; J2405; J3010

== ENCOUNTER 2019-03-22 06:36 | Outpatient (CLI) | payer OTHER ==
[~2019-03-22] VITALS: Ht 165.1 cm; Wt 74.4 kg
[2019-03-22] VITALS (7 sets, daily range): BP systolic 110–127; BP diastolic 55–71
[~2019-03-22 06:36] MED LIST changes: -DEXAMETHASONE SOD PHOS 4 MG/ML VIAL ONE; -HEPARIN PF 500 UNIT/5 ML DISP.SYRIN. IV ONE; -HYDROmorphone 2 MG/ML VIAL ONE; -IV RINGERS,LACTATED 1000ML 1,000 ML IV SCH; -LIDOCAINE 1% PF 2 ML VIAL. ID PRN; -LIDOCAINE 1% PF 2 ML VIAL. ONE; -LIDOCAINE 2% PF 5 ML VIAL. ONE; -LIDOCAINE WITH 8.4% SOD BICARB 3 ML DISP.SYRIN. IJ ONE; -LIDOCAINE WITH 8.4% SOD BICARB 3 ML DISP.SYRIN. ONE; -MIDAZOLAM HCL/PF 2 MG/2 ML VIAL. ONE; -MORPHINE SULFATE 2 MG/ML VIAL. IV PRN; -ONDANSETRON PF 4 MG/2 ML VIAL. IV PRN; -ONDANSETRON PF 4 MG/2 ML VIAL. ONE; -PROCHLORPERAZINE 10 MG/2 ML VIAL. IV PRN; -PROPOFOL 40 ML IV ONE; -fentaNYL PF VIAL 100 MCG/2 ML VIAL IV PRN; -fentaNYL PF VIAL 100 MCG/2 ML VIAL ONE
[2019-03-22 07:45] LABS: BASO % 1 % (0-3); EOS % 2 % (0-3); HEMATOCRIT 32.2 % (36.0-47.0); HEMOGLOBIN 10.7 g/dL (12.0-15.5); LYMPH # 1.5 x10^3/uL (1.0-4.8); LYMPH % 47 % (24-48); MEAN CORPUSCULAR HEMOGLOBIN 27 pg (25-35); MEAN CORPUSCULAR HGB CONC 33 g/dL (31-37); MEAN CORPUSCULAR VOLUME 82 fL (79-100); MONO # 0.2 x10^3/uL (0.0-1.1); MONO % 5 % (0-9); NEUT # 1.4 x10^3/uL (1.8-7.7); NEUT % 45 % (31-73); PLATELET COUNT 191 x10^3/uL (140-400); RED BLOOD COUNT 3.92 x10^6/uL (3.50-5.40); WHITE BLOOD COUNT 3.2 x10^3/uL (4.0-11.0)
[2019-03-22 07:56] LABS: PROTHROMBIN TIME PATIENT 13.6 SEC (11.7-14.0)
[2019-03-22] MEDS ORDERED: DIAZ5TAB4 PO (08:07)
[2019-03-22] MEDS ORDERED: fentaNYL PF VIAL 100 MCG/2 ML VIAL ONE (08:20)
[2019-03-22] MEDS ORDERED: MIDAZOLAM HCL/PF 2 MG/2 ML VIAL. ONE (08:20)
[2019-03-22] MEDS ORDERED: LIDOCAINE 1%/EPI 1:100,000 20 ML VIAL. ONE (08:32)
--- NOTE | 2019-03-22 08:57 | PDOC ---
MODERATE SEDATION ASSESSMENT RISKS/ALTERNATIVES Risks/Alternatives Risks and alternatives of this type of sedation and procedure discussed with: RISK/ALTERNATIVES: Patient H & P ON CHART H & P H & P on chart and reviewed for co-morbid conditions and appropriate labs. H&P ON CHART: Yes STATUS PREG STATUS ASSESSED: Yes MEDS/ALLERGIES REVIEWED Meds/Allergies Reviewed Medications and Allergies including time and route of recently administered narcotics and sedatives. MEDS/ALLERGIES REVIEWED: Yes ASA RATING ASA RATING: II AIRWAY ASSESSMENT Airway Assessment Airway patency, oral function limitations, presence of caps, crowns, dentures, partials, and ability to extend neck assessed. AIRWAY ASSESSMENT: Yes MALLAMPATI SCORE MALLAMPATI SCORE: II PRE-SEDATION ASSESSMENT PRE-SEDATION ASSESSMENT: Yes LEFTY BAILEY MD Mar 22, 2019 08:57
--- NOTE | 2019-03-22 08:58 | PDOC ---
BRIEF OPERATIVE NOTE Pre-Op Diagnosis tunnelled central line removal Post-Op Diagnosis same Procedure Performed same Surgeon Carissa Anesthesia Type: Conscious Sedation Findings tunnelled central line removal Complications no immediate LEFTY BAILEY MD Mar 22, 2019 08:58
[2019-03-22] MEDS ORDERED: LIDOCAINE 1%/EPI 1:100,000 20 ML VIAL. INJ ONE (09:00)
[2019-03-22] MEDS ORDERED: MIDAZOLAM HCL/PF 2 MG/2 ML VIAL. IV ONE (09:00)
[2019-03-22] MEDS ORDERED: fentaNYL PF VIAL 100 MCG/2 ML VIAL IV ONE (09:00)
[2019-03-22] MEDS ORDERED: diphenhydrAMINE HCL 25 MG CAPSULE PO ONE ×2 (09:30)
--- NOTE | 2019-03-22 10:24 | NUR ---
Discharge Note: DYLAN LOPEZ Discharge instructions and discharge home medications reviewed with Patient and a copy given. All questions have been answered and understanding verbalized. The following instructions and handouts were given: incision care and adult moderate sedation Discontinued lines and drains: Powerline removed from left chest, dressing clean,dry,intact, and no bleeding. [facility]
--- NOTE | 2019-03-22 10:53 | RAD ---
Procedure: Removal of tunneled central line Clinical Indication: 28-year-old no longer requiring central venous access Sedation: Conscious sedation was administered with a total intraprocedural [id number] time of 13 minutes. The patient was monitored by a qualified independent observer throughout the time of sedation. Please refer to the medical record for exact doses of medications utilized to achieve moderate sedation. Antibiotics: Patient is on IV antibiotics. Exposure: Kerma-Area Product: 0.2 Gycm2 OR Sterility: All elements of maximal sterile barrier technique including the use of a cap, mask, sterile gown, sterile gloves, large sterile sheet, appropriate hand hygiene, and 2% chlorhexidine for cutaneous antisepsis (or acceptable alternative antiseptic per current guidelines) were followed for this procedure. Consent: The procedure was explained in its entirety to the patient or the patients designated major account representative by a member of the treatment team, including a discussion of the risks, benefits and commonly accepted alternatives to the procedure, as well as the expected consequences of no therapy whatsoever. Discussion of the risks included, but was not limited to, those that are most frequent and those that are rare but possibly severe or life-threatening, as well as the possibility of unforeseen complications. Technique and Findings: Following informed consent, the patient was prepped and draped in usual sterile fashion. Preliminary fluoroscopic spot view revealed an intact left IJ tunneled central line. 1% lidocaine was used to achieve local anesthesia. Blunt dissection techniques were used to free the cuff, and the entirety of the catheter was removed and one piece. The tract was then copiously irrigated with sterile saline and left to heal by secondary intention. Follow-up fluoroscopy demonstrated no residual radiopaque foreign body. Complications: No immediate Impression: 1. Fluoroscopic guided removal of a tunneled central line as described.
== END 2019-03-22 10:10 | disposition home or self-care (01) ==
LOC: INTRAD 06:36
PROVIDERS: ATTEND Family Medicine
DX: Z45.2 Encounter for adjustment and management of vascular access device (principal); R79.89 Other specified abnormal findings of blood chemistry; Z88.6 Allergy status to analgesic agent; Z88.8 Allergy status to other drugs, medicaments and biological substances; Z79.899 Other long term (current) drug therapy
CPT/HCPCS: 36415; 36589; 77001; 85025; 85610; 85730; J2250; J3010; J3490; Q0163; 99152